=== PATIENT | female | born 1950 | race Caucasian/White ===

== ENCOUNTER 2017-03-18 12:08 | Emergency (ER) | payer OTHER ==
[~2017-03-18] VITALS: Ht 157.5 cm; Wt 70.0 kg
[~2017-03-18 12:08] MED LIST: AMOXICILLIN500 MG PO; AUGMENTIN875TAB PO; BACLOFEN10 MG PO; BENADRYL 50MG C50 MG PO; CLOBETASOL0.051; CLOBETASOL0.051 EX; DIPHENHYDRAM50 M2 PO; FLEXERIL PO; FLONASE NASAL50 MCG; HYDROCORTISO2.51 EX; KEFLEX500 MG PO; LORTAB 5 PO; LORTAB5 PO; MEDDOSEPAK OR; MEDDOSEPAK PO; MOTRIN800 MG PO; NAPROSYN500 MG PO; NO; ROBITUSSIN AC10 ML PO; VALTREX1 GM PO; VALTREX500 MG PO; VISTARIL25 MG PO; XANAX0.5 MG PO; ZOFRAN ODT4 MG PO; ZOSTAVAX IM
[2017-03-18] MEDS ORDERED: NAPROSYN500 MG PO (12:55)
[2017-03-18 13:02] VITALS: BP 156/78
== END 2017-03-18 13:03 | disposition home or self-care (01) | DRG 563 ==
LOC: ED 12:08
DX: S83.91XA Sprain of unspecified site of right knee, initial encounter (principal); S60.221A Contusion of right hand, initial encounter; S60.222A Contusion of left hand, initial encounter; W01.0XXA Fall on same level from slipping, tripping and stumbling without subsequent striking against object, initial encounter; Y93.89 Activity, other specified; Y92.238 Other place in hospital as the place of occurrence of the external cause; Y92.481 Parking lot as the place of occurrence of the external cause